=== PATIENT | female | born 1955 | race Caucasian/White ===

== ENCOUNTER → 2016-06-05 | Outpatient (CLI) | payer BC ==
[2016-06-05 10:01] LABS: CHLORIDE,CL 108 mmol/L (98-110); SODIUM,NA 142 mmol/L (136-146)
--- NOTE | 2016-06-05 14:56 | CR ---
EXAMINATION: Left knee HISTORY: Pain COMPARISON: None TECHNIQUE: AP and lateral views FINDINGS/IMPRESSION: There is moderate joint space narrowing within the medial compartment with oste ophytes noted. Mild degenerative changes noted within the patellofemoral compartment. No fracture, a cute osseous abnormality or joint effusion.
--- NOTE | 2016-06-05 15:02 | CR ---
EXAMINATION: Left shoulder HISTORY: Pain COMPARISON: None TECHNIQUE: 3 views FINDINGS/IMPRESSION: There is mild joint space narrowing within the glenohumeral joint with moderate subchondral cystic change. Osteophytes are also noted. No fracture or acute osseous abnormality. Mi nimal acromioclavicular osteoarthritic present.
== END ==
LOC: MW.CHFP 09:23
PROVIDERS: ATTEND Student in an Organized Health Care Education/Training Program
DX: M25.512 Pain in left shoulder (principal); M25.562 Pain in left knee; I10 Essential (primary) hypertension; M25.712 Osteophyte, left shoulder; M25.762 Osteophyte, left knee
CPT/HCPCS: 36415; 73030-26-LT; 73030-LT; 73562-26-LT; 73562-LT; 80053; 80061; 86430

== ENCOUNTER → 2016-07-21 | Outpatient (CLI) | payer BC ==
--- NOTE | 2016-07-21 13:30 | MY ---
EXAMINATION: Bilateral digital mammography utilizing CAD. HISTORY: Screening exam. Comparison is made to previous studies dated 06/14/2015, 06/30/2014, 07/29/19 14, 04/16/2013. FINDINGS: Bilateral heterogeneously dense breast tissue. No suspicious calcifications, masses or architectural distortions. No pathologic appearing lymph nodes, no abnormal skin thickening or nipple inversion. CAD highlighted regions appear normal at this time. IMPRESSION: BI-RADS category I - negative mammogram. Continued screening according to ACR-ACS guidelines judah dasilva. THE FALSE-NEGATIVE RATE OF MAMMOGRAM IS APPROXIMATELY 10%. MANAGEMENT OF A PALPABLE ABNORMALITY MUST BE BASED UPON CLINICAL GROUNDS. SENSITIVITY FOR DETECTION OF ABNORMALITIES IN DENSE BREASTS IS LOW. NOTE: A letter will be sent to the patient regarding findings. [facility] -- [place] [phone] - FAX [phone]
== END | disposition home or self-care (01) ==
LOC: MW.MAM 09:32
PROVIDERS: ATTEND Student in an Organized Health Care Education/Training Program
DX: Z12.31 Encounter for screening mammogram for malignant neoplasm of breast (principal)
CPT/HCPCS: G0202; G0202-26

== ENCOUNTER → 2016-08-01 | Outpatient (CLI) | payer BC ==
--- NOTE | 2016-08-02 12:37 | CR ---
EXAM DATE: 08/01/16 PATIENT'S AGE: 61 Patient: JM ZAMAN Facility: [place], [place] Site . Site : [id number] Study: XRay Shoulder Left [id number]/25/2017 9:13:04 AM Ordering Physician: Keenan Amaya Final Report: HISTORY: Left shoulder pain. Findings: Three views left shoulder are compared with 05 June 2016. There is minimal degenerative change of the AC joint. There is moderate degenerative changes of the glenohumeral joint with decreased joint space and spurring. Subchondral cyst formation is present. No fracture or dislocation seen. Impression: 1. Minimal degenerative changes of the AC joint. 2. Moderate degenerative changes of the glenohumeral joint. 3. No acute bony abnormality. Dictated by Rabia Garduno MD @ Aug 02 2016 1:55AM (Electronic Signature) Report Signed by Proxy and Original Signed Document filed in the Medical Record. [facility]
== END ==
LOC: MW.CHFP 08:57
PROVIDERS: ATTEND Student in an Organized Health Care Education/Training Program
DX: M25.512 Pain in left shoulder (principal)
CPT/HCPCS: 73030-26-LT; 73030-LT